=== PATIENT | male | born 1955 | race Caucasian/White ===

== ENCOUNTER 2019-03-25 12:07 | Day surgery (SDC) | payer OTHER, SELFPAY ==
[2019-03-25] VITALS (8 sets, daily range): BP systolic 125–160; BP diastolic 70–94; PULSE 66–81; RESP 10–20; TEMP 35.9–36.6; O2SAT 94–100; BMI 27.8
[2019-03-25] MEDS: LACTATED RINGERS 1,000 ML 42 ML IV ×2 (13:23→15:51)
[2019-03-25] MEDS: INSULIN ASPART 100 UNIT/ML 10ML VIAL 6 UNIT SUBCUT (13:54)
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
--- NOTE | 2019-03-25 14:07 | PM.PREOP ---
Pre-operative Note Interval Note History & Physical reviewed/Exam performed by Physician: Yes Changes to H&P: No
[2019-03-25] MEDS: CLINDAMYCIN 900 MG/50 ML PIGGYBACK 50 MG IV (14:10)
--- NOTE | 2019-03-25 14:36 | SUR.OPER ---
Supine on padded OR bed, head on pillow, Right arm on large padded arm board controlled by surgeon, Left arm secured on padded arm board at <90 degrees abduction, legs uncrossed, safety belt at thigh, tape over blanket over lower legs.
[2019-03-25] MEDS: BUPIVACAINE 0.25% W/ EPI 30 ML VIAL INJ (14:41)
[2019-03-25] MEDS: HYDROMORPHONE 2 MG INJ 0.5 MG IV ×2 (15:27→15:50)
[2019-03-25] MEDS: HYDROCODONE/ACET 5/325 TABLET 1 TAB PO (15:47)
== END 2019-03-25 16:40 | disposition home or self-care (01) ==
PROVIDERS: Family Provider Physician Assistant Medical; PCP Physician Assistant Medical; Visit Provider Orthopaedic Surgery Foot and Ankle Surgery
PROC: (CPT 26608; principal; 2019-03-25 14:00)
DX: S62.316A Displaced fracture of base of fifth metacarpal bone, right hand, initial encounter for closed fracture (principal); E11.9 Type 2 diabetes mellitus without complications; Z79.84 Long term (current) use of oral hypoglycemic drugs; Z86.73 Personal history of transient ischemic attack (TIA), and cerebral infarction without residual deficits; W19.XXXA Unspecified fall, initial encounter
CPT/HCPCS: 26608; J1170; J2405; J2704; J3010